=== PATIENT | female | born 1960 | race Caucasian/White ===

== ENCOUNTER → 2016-10-16 | Outpatient (CLI) | payer BC | LOC: GMAB 11:01 | PROVIDERS: ATTEND Family Medicine | DX: Z00.01 Encounter for general adult medical examination with abnormal findings (principal) ==

== ENCOUNTER → 2018-10-15 | Outpatient (CLI) | payer BC | LOC: GMAE 10:20 | PROVIDERS: ATTEND Family Medicine | DX: Z00.00 Encounter for general adult medical examination without abnormal findings (principal) ==

== ENCOUNTER → 2019-10-16 | Outpatient (CLI) | payer BC | LOC: GMAE 11:16 | PROVIDERS: ATTEND Family Medicine | DX: Z00.00 Encounter for general adult medical examination without abnormal findings (principal) ==

== ENCOUNTER → 2020-01-21 | Outpatient (CLI) | payer BC | LOC: GMAE 11:24 | PROVIDERS: ATTEND Family Medicine | DX: E03.9 Hypothyroidism, unspecified (principal) ==

== ENCOUNTER → 2020-04-21 | Outpatient (CLI) | payer BC | LOC: GMAE 10:38 | PROVIDERS: ATTEND Family Medicine | DX: E03.9 Hypothyroidism, unspecified (principal); E11.9 Type 2 diabetes mellitus without complications; Z79.899 Other long term (current) drug therapy ==

== ENCOUNTER → 2020-08-17 | Outpatient (CLI) | payer OTHER ==
--- NOTE | 2020-08-17 16:31 | RAD ---
EXAM DESCRIPTION: Chest,2 Views CLINICAL HISTORY: COVID COMPARISON: None TECHNIQUE: PA/lateral FINDINGS: Heart size is normal with normal pulmonary vascularity. No pleural effusion or pneumothorax. Bilateral pulmonary infiltrates consistent with pneumonia involving periphery of the right mid and lower lung zones and left lingular region. Patchy infiltrate in the paramediastinal upper lobes above the adriana. Wide mediastinum could be mass or adenopathy. Follow-up recommended. Lateral view shows intact sternum and T-spine. IMPRESSION: Bilateral pulmonary infiltrates consistent with pneumonia. Electronically signed by: Alec Ricardo MD 08/17/2020 4:29 PM [facility]
== END ==
LOC: LAB.O 11:44
PROVIDERS: ATTEND Family Medicine
DX: B34.2 Coronavirus infection, unspecified (principal); R71.8 Other abnormality of red blood cells; R09.02 Hypoxemia; R91.8 Other nonspecific abnormal finding of lung field

== ENCOUNTER → 2020-10-05 | Outpatient (CLI) | payer OTHER | LOC: GMAE 12:41 | PROVIDERS: ATTEND Family Medicine | DX: Z00.00 Encounter for general adult medical examination without abnormal findings (principal) ==